=== PATIENT | female | born 1950 | race Caucasian/White ===

== ENCOUNTER → 2016-10-16 | Outpatient (CLI) | payer OTHER | LOC: FIMAGING 10:45 | DX: Z12.31 Encounter for screening mammogram for malignant neoplasm of breast (principal); Z85.3 Personal history of malignant neoplasm of breast | CPT/HCPCS: G0202 ==

== ENCOUNTER 2016-12-03 18:28 | Emergency (ER) | payer OTHER ==
[2016-12-03 18:52] VITALS: TEMP 98.4; O2SAT 94
--- NOTE | 2016-12-03 19:18 | EDPHY ---
H & P Time Seen by Provider: 12/03/16 18:59 HPI/ROS: CHIEF COMPLAINT: Right leg pain HISTORY OF PRESENT ILLNESS: Patient is a 66-year-old female who developed right leg pain started yesterday. She describes it as posterior from her calf up to her lower hamstring. She states it was worse after hiking. Today she noticed some mild redness behind the right knee. She called advice nurse was sent to the emergency department for further evaluation. No chest pain or shortness of breath. No fevers or chills. No numbness or tingling. REVIEW OF SYSTEMS: My complete review of systems is negative except as mentioned in the HPI. Past Medical/Surgical History: Includes breast cancer, chronic pain, migraines, closed-head injury Past surgical history: Includes back surgery Social history: Patient does not smoke Smoking Status: Never smoked Physical Exam: Vitals noted General Appearance: Alert and no distress. Head: Pupils equal. Normal. Respiratory: No respiratory distress. Cardiac: regular rate and rhythm. Extremities: Patient's right lower extremity appears normal. There is no swelling or erythema. No redness binder knee. No tenderness palpation or palpable mass. No Homans sign or cords. Skin: No rashes or lesions. Neuro: Alert. Normal mood and affect. Constitutional: Initial Vital Signs Temperature (C) 36.9 C 12/03/16 18:49 Heart Rate 79 12/03/16 18:49 Respiratory Rate 17 12/03/16 18:49 Blood Pressure 141/81 H 12/03/16 18:49 O2 Sat (%) 94 12/03/16 18:49 O2 Delivery Mode Room Air Allergies/Adverse Reactions: acetaminophen [From Percocet] Allergy (Verified 12/03/16 18:48) ketorolac [From Toradol] Allergy (Verified 12/03/16 18:47) oxycodone [From Percocet] Allergy (Verified 12/03/16 18:48) Home Medications: Medication Instructions Recorded Escitalopram Oxalate 12/03/16 Neurontin 12/03/16 Nucynta 12/03/16 Zofran 12/03/16 Medical Decision Making ED Course/Re-evaluation: In the emergency department I discussed possible etiologies with the patient. I answered all her questions. Ultrasound of her right lower extremity was ordered. Right lower extremity ultrasound: Please refer the dictated report. No DVT or acute disease. I discussed the results with the patient. I answered all her questions. I gave her warnings prior to leaving. She will return with worsening symptoms. She will follow up with the primary care physician. Differential Diagnosis: My differential includes but is not limited to DVT, Clifford cyst, arterial occlusion, cellulitis, strain, sprain Departure - Departure Disposition: Home, Routine, Self-Care Clinical Impression: Knee pain, acute Qualifiers: Laterality: right Qualified Code(s): M25.561 - Pain in right knee Condition: Good Instructions: Knee Pain (ED) Additional Instructions: Your ultrasound was negative. Return with increasing pain, fever or any other concerns. Referrals: Shasta Miranda MD [Primary Care Provider] - 3-4 days, if not improved
[2016-12-03 20:37] VITALS: BP 134/93; PULSE 80; RESP 16
== END 2016-12-03 20:37 | disposition home or self-care (01) ==
DX: M25.561 Pain in right knee (principal); Z85.3 Personal history of malignant neoplasm of breast

== ENCOUNTER → 2017-10-30 | Outpatient (CLI) | payer OTHER | LOC: FIMAGING 10:32 | PROVIDERS: ATTEND Internal Medicine Hematology & Oncology | DX: Z12.31 Encounter for screening mammogram for malignant neoplasm of breast (principal); Z85.3 Personal history of malignant neoplasm of breast ==

== ENCOUNTER → 2018-11-05 | Outpatient (CLI) | payer OTHER | LOC: FIMAGING 15:15 | PROVIDERS: ATTEND Internal Medicine Hematology & Oncology | DX: Z12.31 Encounter for screening mammogram for malignant neoplasm of breast (principal); Z85.3 Personal history of malignant neoplasm of breast ==